=== PATIENT | female | born 1955 | race Caucasian/White ===

== ENCOUNTER 2016-10-06 11:03 | Emergency (ER) | payer OTHER ==
--- NOTE | 2016-10-06 12:35 | ED Physician Documentation ---
PD HPI NVD - Stated complaint Stated Complaint: V/D - Chief complaint Chief Complaint: General - History obtained from History obtained from: Patient - History of Present Illness Timing - onset: How many days ago (she was stung by bee couple days ago and had local redness that increased into the next day. Seen in office and given Rx for Augmentin for concern of infection. She has nausea and vomiting with slight diarrhea after taking the meds. Not feeling worse/rash overall. The swelling and redness of forearm is decreasing into today. She called office and was told to come to ED due to worsening symptoms (the nausea and vomting today).) Timing - details: Abrupt onset Associated symptoms: No: Fever, Abdominal pain, Chest pain, Hematemesis, Dizzy Contributing factors: Recent antibiotics Worsened by: Eating Recently seen: Clinic Review of Systems Constitutional: denies: Fever, Chills Throat: denies: Sore throat Respiratory: denies: Dyspnea, Wheezing Neurologic: denies: Focal weakness, Numbness, Near syncope PD PAST MEDICAL HISTORY - Past Medical History Past Medical History: Yes Cardiovascular: Hypertension Endocrine/Autoimmune: HyPERthyroidism Musculoskeletal: Osteopenia - Past Surgical History Past Surgical History: Yes - Present Medications Home Medications: Ambulatory Orders Medication Instructions Recorded Confirmed Alendronate [Fosamax] 1 tab PO DAILY 10/06/16 10/06/16 Atenolol 1 tab PO DAILY 10/06/16 10/06/16 Cephalexin [Keflex] 500 mg PO QID #20 capsule 10/06/16 Dexamethasone [Decadron] 4 mg PO DAILY #5 tablet 10/06/16 Hydrochlorothiazide 1 tab PO DAILY 10/06/16 10/06/16 Levothyroxine [Synthroid] 1 tab PO DAILY 10/06/16 10/06/16 Ondansetron Odt [Zofran] 4 mg TL Q6H PRN #15 tablet 10/06/16 - Allergies Allergies/Adverse Reactions: Allergies Allergy/AdvReac Type Severity Reaction Status Date / Time fenofibrate nanocrystallized Allergy Unknown Verified 10/06/16 11:17 * [From Tricor] fenofibrate,micronized * Allergy Unknown Verified 10/06/16 11:17 [From Tricor] - Social History Does the pt smoke?: No Smoking Status: Never smoker Does the pt drink ETOH?: Yes ETOH Use: Wine, Liquor Does the pt have substance abuse?: No - Immunizations Immunizations are current?: Yes - POLST Patient has POLST: No PD ED PE NORMAL - Vitals Vital signs reviewed: Yes - General General: Alert and oriented X 3, Well developed/nourished - HEENT HEENT: Pharynx benign, Other (no oral swelling ) - Neck Neck: Supple, no meningeal sign, No adenopathy - Cardiac Cardiac: RRR, No murmur - Respiratory Respiratory: Clear bilaterally - Derm Derm: Normal color, Warm and dry, Other (left forearm with redness and swelling and patch of blistered skin with clear fluid over lateral proximal forearm. ) Results - Vitals Vitals: Vital Signs - 24 hr 10/06/16 10/06/16 11:13 13:07 Temperature 37 C 36.8 C Heart Rate 73 70 Respiratory 16 18 Rate Blood Pressure 174/98 H 158/95 H O2 Saturation 98 97 Oxygen O2 Source Room air PD MEDICAL DECISION MAKING - ED course Complexity details: considered differential (timecourse of redness and swelling the day following bee sting more likely local reaction. It is improving since given abx yesterday, but would have expected that with local reaction. The N/V/ D is most likely from the Augmentin since not feeling rash/reaction bodywide otherwise. Will treat steroids and hold abx. If worsens or not better over next day, then perhaps is infection too and would then start Keflex.), d/w patient Departure - Departure Disposition: 01 Home, Self Care Clinical Impression: Nausea vomiting and diarrhea Medication side effect Qualifiers: Encounter type: initial encounter Qualified Code(s): T88.7XXA - Unspecified adverse effect of drug or medicament, initial encounter Bee sting reaction Qualifiers: Encounter type: initial encounter Injury intent: accidental or unintentional Qualified Code(s): T63.441A - Toxic effect of venom of bees, accidental ( unintentional), initial encounter Condition: Stable Record reviewed to determine appropriate education?: Yes Instructions: ED Bite Sting Insect Local Allergic React, ED Nausea Vomiting Prescriptions: Dexamethasone [Decadron] 4 mg PO DAILY #5 tablet Cephalexin [Keflex] 500 mg PO QID #20 capsule Ondansetron Odt [Zofran] 4 mg TL Q6H PRN #15 tablet PRN Reason: Nausea / Vomiting Comments: The reaction to the bee sting seems local. Since he do not have general symptoms from it, I am inclined to think the nausea and vomiting with some diarrhea related to the Augmentin rather than worsening of the sting reaction. Stop the Augmentin. Use cool towels to the arm periodically through the day. Use Decadron (steroid/cortisone type med) daily as a medication to decrease the venom response. If the swelling continues to decrease, then just continue with that treatment. If it does not continue to decrease or increases again, then add cephalexin antibiotic instead. Use ondansetron if needed for nausea. Recheck if further problems. Discharge Date/Time: 10/06/16 13:13
[2016-10-06] MEDS ORDERED: ONDANSETRON ODT 4 MG TABLET TL STA (12:55)
[2016-10-06] MEDS ORDERED: DEXAMETHASONE 10 MG/ML VIAL PO STA (12:56)
[2016-10-06] MEDS ORDERED: DEXAMETHASONE 10 MG/ML VIAL ONE (13:07)
[2016-10-06] MEDS ORDERED: ONDANSETRON ODT 4 MG TABLET ONE (13:07)
[2016-10-06 13:09] VITALS: BP 158/95
== END 2016-10-06 13:13 | disposition home or self-care (01) ==
LOC: ED 11:03
DX: R11.2 Nausea with vomiting, unspecified (principal); T36.0X5A Adverse effect of penicillins, initial encounter; R19.7 Diarrhea, unspecified; T63.441D Toxic effect of venom of bees, accidental (unintentional), subsequent encounter; I10 Essential (primary) hypertension; E05.90 Thyrotoxicosis, unspecified without thyrotoxic crisis or storm
CPT/HCPCS: 99283; Q0162